=== PATIENT | female | born 1995 | race Caucasian/White ===

== ENCOUNTER 2017-08-12 20:21 | Emergency (ER) | payer SELFPAY ==
[~2017-08-12] VITALS: Ht 165.1 cm; Wt 75.0 kg
[2017-08-12 20:44] VITALS: BP 109/60
== END 2017-08-13 | disposition left against medical advice (07) ==
LOC: ER 21:43
DX: J02.9 Acute pharyngitis, unspecified (principal); F12.10 Cannabis abuse, uncomplicated; Z53.21 Procedure and treatment not carried out due to patient leaving prior to being seen by health care provider